=== PATIENT | male | born 1990 | race Caucasian/White ===

== ENCOUNTER 2017-10-22 15:18 | Emergency (ER) | END 2017-10-22 20:10 | disposition home or self-care (01) ==

== ENCOUNTER 2019-02-24 16:32 | Emergency (ER) | payer SELFPAY ==
[~2019-02-24] VITALS: Ht 157.5 cm; Wt 68.0 kg
[~2019-02-24 16:32] MED LIST: ACET1TAB40 PO; AMOX1TAB10 PO
[2019-02-24 16:39] VITALS: Ht 157.5 cm; Wt 68.0 kg
--- NOTE | 2019-02-24 19:18 | ERD ---
ER Documentation Chief Complaint Chief Complaint pt is bib self with c/o small amt blood during BM, hemmroid? HPI 28-year-old male, presents the emergency department, complaining of 1 week with intermittent episodes of painless rectal bleeding with bowel movement. The patient also reports increased urinary frequency. He denies fever, no chills, no abdominal pain. ROS All systems reviewed and are negative except as per history of present illness. Medications Home Meds Active Scripts Ranitidine Hcl* (Zantac*) 150 Mg Tablet, 150 MG PO BID PRN for EPIGASTRIC PAIN for 10 Days, #20 TAB Prov:TODD SLAGADO MD 02/24/19 Polyethylene Glycol* (Miralax*) 17 Gm Powd.pack, 17 GM PO DAILY, #7 Prov:TODD SALGADO MD 02/24/19 Amoxicillin/Potassium Clav (Amox-Clav 875-125 mg Tablet) 875-125 mg Tab, 1 TAB PO BID for 14 Days, #28 TAB Prov:WAQAR WARNER PA-C 10/22/17 Acetaminophen-Codeine* (Acetaminophen-Cod #3*) 300-30 Mg Tab, 1 TAB PO Q4H PRN for PAIN, #10 TAB Prov:FREDI RAI MD 03/14/16 Allergies Allergies: Coded Allergies: No Known Allergy (Unverified , 10/22/17) PMhx/Soc Medical and Surgical Hx: pt denies Medical Hx, pt denies Surgical Hx Hx Alcohol Use: No Hx Substance Use: Yes (marijuana) Hx Tobacco Use: No Smoking Status: Never smoker FmHx Family History: No diabetes, No coronary disease Physical Exam Vitals Vital Signs Date Temp Pulse Resp B/P (MAP) Pulse Ox O2 O2 Flow FiO2 Time Delivery Rate 02/24/19 100.1 87 16 125/80 99 16:39 (95) Physical Exam Patient alert, oriented, vital signs stable. HEAD: Normocephalic, atraumatic. EYES: PERRLA, EOMI, Sclera and conjunctiva appear normal. NOSE: Clear and patent nostrils. EARS: Canals clear, tympanic membranes WNL. MOUTH: normal lips and tongue, no oral lesions. THROAT: Normal oropharynx, no tonsillar exudates. NECK: Supple, No lymphadenopathy. Full ROM without pain or tenderness. HEART: RRR, no rubs, murmurs, clicks or gallops. LUNGS: Clear to auscultation. ABDOMEN: Soft, non-tender without masses or hepatosplenomegaly. RECTAL: Normal inspection, rectal sphincter with adequate tone, <1 cm painless nodule internally palpated with mild blood. EXTREMITIES: No edema bilaterally. BACK: Full ROM, no deformity, normal back exam NEURO: Cranial nerves grossly intact, no motor or sensory deficit SKIN: No rashes, no petechia. Results 24 hrs Laboratory Tests Test 02/24/19 19:38 Bedside Urine pH (LAB) 7.0 Bedside Urine Protein (LAB) Negative Bedside Urine Glucose (UA) Negative Bedside Urine Ketones (LAB) Negative Bedside Urine Blood Negative Bedside Urine Nitrite (LAB) Negative Bedside Urine Leukocyte Esterase (L Negative Procedures/MDM Differential diagnosis include but not limited to: Internal hemorrhoid, external hemorrhoid, skin tag, bowel Obstruction, ileus, fecal impaction. Low suspicion for acute abdomen. Physical examination and clinical presentation consistent most likely with internal bleeding hemorrhoid. During the ED course the patient remained stable, no new complaints. Treatment options, results and clinical impression discussed with the patient who agrees with management. The patient is stable to be treated outpatient and will be discharged home, some side effects of prescribed medications were reviewed. The patient was instructed to follow up with the primary care provider in the next 48h. If symptoms persist, worsen or new symptoms develop, then patient should return to the ED immediately. Instructions explained and given directly by me to the patient with acknowledgment and demonstrated understanding. Disclaimer: Inadvertent spelling and grammatical errors are likely due to EHR/dictation software use and do not reflect on the overall quality of patient care. Also, please note that the electronic time recorded on this note does not necessarily reflect the actual time of the patient encounter. ED to Dr. Aubrey Mayo but now she is seen the patient Departure Diagnosis: Primary Impression: Internal bleeding hemorrhoids Condition: Stable Additional Instructions: Thank you very much for allowing us to participate in your care. Your health and safety is our top priority at [facility]. The evaluation in the emergency department has been done to rule out an acute emergency, therefore, chronic conditions like malignancy or other diseases have not been evaluated; therefore, you need to follow up with a primary care provider in the next 48h. If symptoms persist, worsen or new symptoms develop, then patient should return to the ED immediately. Call your primary care doctor TOMORROW for an appointment during the next 2-4 days and bring all the information provided. Have prescriptions filled and follow precisely the directions on the label. If the symptoms get worse and your provider is unavailable, return to the Emergency Department immediately. TODD SALGADO MD February 24, 2019 19:18
[2019-02-24] MEDS ORDERED: RANI150T35 PO (19:50)
[2019-02-24] MEDS ORDERED: POLY17PO6 PO (19:50)
[2019-02-24 20:10] VITALS: BP 113/77; PULSE 68; RESP 18
== END 2019-02-24 20:11 | disposition home or self-care (01) ==
LOC: FTE 16:32
DX: K64.8 Other hemorrhoids (principal)
CPT/HCPCS: 81003; 99284